=== PATIENT | male | born 1975 | race Caucasian/White ===

== ENCOUNTER → 2016-07-31 | Outpatient (REF) | payer BC ==
[~2016-07-31] MED LIST: ASPI-586 PO; LSNP10T PO
== END ==
LOC: LAB 12:04
PROVIDERS: ATTEND Family Medicine
DX: R68.82 Decreased libido (principal); R53.83 Other fatigue
CPT/HCPCS: 84403

== ENCOUNTER → 2016-09-18 | Outpatient (REF) | payer BC | LOC: LAB 11:15 | PROVIDERS: ATTEND Family Medicine | DX: G47.33 Obstructive sleep apnea (adult) (pediatric) (principal); R53.83 Other fatigue | CPT/HCPCS: 84403; 84443; 85014; 85018 ==